=== PATIENT | female | born 1960 | race Two or more races ===

== ENCOUNTER 2025-08-10 07:27 | Day surgery (SDC) | payer OTHER ==
[~2025-08-10] VITALS: Ht 180.3 cm; Wt 59.0 kg
[2025-08-10] MEDS ORDERED: KETAMINE 50mg/ML 1ml syringe IV ONE (07:28)
[2025-08-10] MEDS ORDERED: ONDANSETRON HCL 4 MG/2 ML VIAL ONE (08:21)
[2025-08-10] MEDS ORDERED: KETOROLAC TROMETH 30 MG/ML 1ML VIAL ONE (08:21)
[2025-08-10] MEDS ORDERED: LIDOCAINE 2% (LOCAL ANESTH.) PF 5ml SDV ONE (08:21)
[2025-08-10] MEDS ORDERED: GLYCOPYRROLATE 0.2 MG/ML 1ML VIAL ONE (08:22)
[2025-08-10] MEDS ORDERED: fentaNYL CITRATE 100 MCG/2 ML VL ONE (08:22)
[2025-08-10] MEDS ORDERED: PROPOFOL 10 MG/ML 20 ML IV ONE (08:22)
[2025-08-10] MEDS ORDERED: HEPARIN SODIUM (PORCINE) 5000 UNITS/ML 1ML VIAL ONE (08:33)
[2025-08-10] MEDS: HEPARIN SODIUM (PORCINE) 5000 UNITS/ML 1ML VIAL SC ONE (09:09)
[2025-08-10] MEDS ORDERED: CELECOXIB 100 MG CAP ONE (09:15)
[2025-08-10] MEDS ORDERED: GABAPENTIN 300 MG CAP ONE (09:15)
[2025-08-10] MEDS ORDERED: ACETAMINOPHEN IV 100 ML IV ONE (09:15)
[2025-08-10] MEDS: ACETAMINOPHEN IV 1000 MG/100ML (10MG/ML) IV ONE (09:47)
[2025-08-10] MEDS: CELECOXIB 100 MG CAP PO ONE (09:47)
[2025-08-10] MEDS: GABAPENTIN 300 MG CAP PO ONE (09:47)
[2025-08-10] MEDS: BUPIVACAINE HCL 50 ML ONE (10:10)
[2025-08-10] MEDS: ceFAZolin 2 GM/D5W50ml 50 ML IV ONE (10:10)
[2025-08-10] MEDS: LIDOCAINE 1% HCL (LOCAL ANESTH.) INJ 20ML MDV ONE (10:10)
[2025-08-10 11:06] VITALS: PULSE 85; RESP 16; TEMP 97; O2SAT 100
[2025-08-10] MEDS ORDERED: FLUMAZENIL 0.1 MG/ML INJ 10ML MDV IV PRN (11:15)
[2025-08-10] MEDS ORDERED: fentaNYL CITRATE 100 MCG/2 ML VL IV PRN (11:15)
[2025-08-10] MEDS ORDERED: ONDANSETRON HCL 4 MG/2 ML VIAL IV PRN (11:15)
[2025-08-10] MEDS ORDERED: NALOXONE HCL 0.4 MG/ML VIAL IV PRN (11:15)
[2025-08-10] MEDS ORDERED: hydrALAZINE HCL 20 MG/ML VL IV PRN (11:15)
[2025-08-10] MEDS ORDERED: HYDROmorphone HCL 2 MG/ML VL/or syr IV PRN (11:15)
[2025-08-10 11:51] VITALS: BP 140/74; PULSE 62; RESP 18; O2SAT 100
--- NOTE | 2025-08-10 12:09 | DVHOP ---
DATE OF SURGERY: 08/10/2025 PREOPERATIVE DIAGNOSIS: Recurrent right inguinal/incisional hernia. POSTOPERATIVE DIAGNOSIS: Recurrent right inguinal/incisional hernia. PROCEDURES: Right ilioinguinal nerve block, creation of subcutaneous flaps measuring 3 x 8 cm, and repair of recurrent 6 cm incisional/inguinal hernia with mesh. SURGEON: Chace Abel MD CPHT: None. ANESTHESIOLOGIST: Neto Cao CRNA. ANESTHESIA: General by means of LMA. INTRAOPERATIVE FINDINGS: * Large recurrent incisional/inguinal hernia measuring 6 x 4 cm. * Small bowel directly below the skin. * No distinct anatomy on the lateral aspect of the abdominal wall. Unable to identify the inguinal ligament. ESTIMATED BLOOD LOSS: Minimal. IV FLUIDS: Per anesthesia charting. URINE OUTPUT: Not recorded given a King catheter was not inserted. DRAINS: None. IMPLANTS: Polypropylene patch. SPECIMENS: None. COMPLICATIONS: None other than difficult procedure. DISPOSITION: Procedure well tolerated and transferred to recovery room in stable condition. INDICATIONS FOR PROCEDURE: The patient is a 65-year-old female with a recurrent right inguinal hernia/incisional hernia. Based on the above-mentioned information, the patient requested to have it repaired. She was advised about the procedure, risks and benefits. All questions were answered. She understood and agreed to proceed. DESCRIPTION OF PROCEDURE: The patient was met in the preoperative holding area. The right inguinal region was marked indicating the correct site of the procedure. She was then transported to the operating room where she was placed in the dorsal decubitus position on the operating room table. Once adequate anesthesia was achieved, the abdomen and pelvis were widely prepped and draped in the usual sterile fashion. My attention was directed towards the right inguinal region, where a right ilioinguinal nerve block was performed using 1% lidocaine/0.5% Marcaine. The projected incision site was also anesthetized with the previously-mentioned solution. A 15 blade was utilized to make an incision over the previous scar. The dermis was carefully incised with electrocautery as well as subcutaneous tissue, immediately getting access to the hernia sac. The patient demonstrated large defect measuring approximately 6 x 4 cm, with protruding small bowel immediately deeper into the subcutaneous space. At this time, the bowel was reduced and a lap pad was placed in the abdominal cavity in order to assess anatomy. Unfortunately, anatomy could not be identified. The patient had significant granulation tissue. I could not identify the inguinal ligament. In order to close the abdominal wall, a subcutaneous flap measuring 3 x 8 cm was created in the cephalad aspect of the subcutaneous space in order to obtain a fascial margin and also be able to place an onlay mesh in order to reduce risk of recurrence. The subcutaneous flap was created with electrocautery. Then, the abdominal wall was approximated in a primary fashion with several interrupted 0 Vicryl sutures in a vest over pants fashion, 2 supporting structures without any bleeding or injury to underlying structures. The lap pad had been removed before closing the abdominal wall. Then, a polypropylene patch was placed in an onlay fashion, securing it to the underlying supportive tissue using 0 PDS sutures. The wound was irrigated. The fluid was evacuated. There was no evidence of active bleeding. The patient had a large space from the previous displacement from the hernia. Unfortunately, I could not avoid this and I decided against placing a drain in order to reduce the risk of infection. If the patient develops a subcutaneous seroma, it will be addressed at a later time. The patient's family will be made aware of this. The subcutaneous tissue and the dermis was approximated with several interrupted 3-0 Vicryl sutures. The skin was closed with 4-0 Monocryl in a subcuticular fashion. The wounds were washed and dried. Sterile dressings were applied. The patient tolerated well the procedure. There were no complications. She was successfully extubated in the operating room and transferred to the recovery room in a stable condition. MD ARAMIS Nj/SUZANNA TID: [id number] RECEIPT: [id number] [facility]
== END 2025-08-10 12:36 | disposition home or self-care (01) ==
LOC: SUR 07:27
DX: K43.2 Incisional hernia without obstruction or gangrene (principal); K40.91 Unilateral inguinal hernia, without obstruction or gangrene, recurrent; I10 Essential (primary) hypertension; E78.5 Hyperlipidemia, unspecified; E11.9 Type 2 diabetes mellitus without complications; I25.10 Atherosclerotic heart disease of native coronary artery without angina pectoris; Z79.899 Other long term (current) drug therapy; Z79.84 Long term (current) use of oral hypoglycemic drugs; Z98.890 Other specified postprocedural states
CPT/HCPCS: 49593; 86850; 86900; 86901; C1781; J0690; J1100; J1644; J1885; J2003; J2405; J2704; J3490; J0131